=== PATIENT | female | born 1990 | race Two or more races ===

== ENCOUNTER 2016-03-15 10:04 | Emergency (ER) | payer MEDICAID ==
[~2016-03-15] VITALS: Ht 154.9 cm; Wt 104.8 kg
[2016-03-15 10:43] VITALS: BP 112/68
== END 2016-03-15 11:03 | disposition home or self-care (01) ==
LOC: ER 10:04
DX: S39.012A Strain of muscle, fascia and tendon of lower back, initial encounter (principal); Z87.891 Personal history of nicotine dependence; X58.XXXA Exposure to other specified factors, initial encounter; Y93.89 Activity, other specified; Y99.8 Other external cause status; Y92.89 Other specified places as the place of occurrence of the external cause

== ENCOUNTER 2017-07-02 04:53 | Emergency (ER) | payer MEDICAID ==
[~2017-07-02] VITALS: Ht 154.9 cm; Wt 103.9 kg
[2017-07-02 05:17] LABS: Urine WBC None Seen /hpf (0 - 5)
[2017-07-02 05:24] LABS: Urine Bacteria NONE SEEN /hpf (None Seen); Urine Blood Negative /uL (Negative); Urine Specific Gravity 1.005 (1.001-1.035)
[2017-07-02 05:48] LABS: Basophils # (auto) 0.1 uL; Basophils % (auto) 0.9 % (0.0-2.0); Eosinophils # (auto) 0.1 uL; Eosinophils % (auto) 1.6 % (0.0-7.0); Hematocrit 39.6 % (36.0-46.0); Hemoglobin 13.2 g/dL (12.2-16.2); Lymphocytes # (auto) 2.1 uL; Lymphocytes % (auto) 25.4 % (10.0-50.0); Mean Corpuscular Hemoglobin 30.3 pg (28.0-32.0); Mean Corpuscular Hgb Conc. 33.4 g/dL (32.0-36.0); Mean Corpuscular Volume 90.8 fL (80.0-100.0); Monocytes # (auto) 0.6 uL; Monocytes % (auto) 6.8 % (0.0-12.0); Neutrophils # (auto) 5.4 uL; Neutrophils % (auto) 65.3 % (37.0-80.0); Nucleated Red Blood Cells % 0.1 %; Platelet Count (auto) 352 10^3/uL (140-450); Red Blood Cells 4.36 10^6/uL (4.0-5.20); Red Cell Distribution Width 13.5 % (11.8-14.3); White Blood Cell 8.3 10^3/uL (4.4-10.8)
[2017-07-02 06:21] LABS: Albumin 3.6 g/dL (3.4-5.0); BUN/Creatinine Ratio 16.7; Bilirubin, Total 0.2 mg/dL (0.2-1.0); Calcium 8.8 mg/dL (8.5-10.1); Potassium 4.3 mmol/L (3.5-5.1); Total Protein 7.5 g/dL (6.4-8.2)
[2017-07-02 09:18] VITALS: BP 115/52
== END 2017-07-02 09:22 | disposition home or self-care (01) ==
LOC: ER 04:57
DX: E27.8 Other specified disorders of adrenal gland (principal); F17.210 Nicotine dependence, cigarettes, uncomplicated
CPT/HCPCS: 36415; 74176; 80053; 81001; 81025; 85025

== ENCOUNTER 2019-09-23 22:53 | Emergency (ER) | payer MEDICAID ==
[~2019-09-23] VITALS: Ht 154.9 cm; Wt 100.2 kg
[2019-09-24 01:46] VITALS: BP 140/58
== END 2019-09-24 02:40 | disposition home or self-care (01) ==
LOC: ER 22:53
DX: S73.101A Unspecified sprain of right hip, initial encounter (principal); S39.012A Strain of muscle, fascia and tendon of lower back, initial encounter; F17.210 Nicotine dependence, cigarettes, uncomplicated; Z87.442 Personal history of urinary calculi; W18.39XA Other fall on same level, initial encounter; Y93.89 Activity, other specified; Y92.89 Other specified places as the place of occurrence of the external cause; Y99.8 Other external cause status
CPT/HCPCS: 71046; 72131; 73700

== ENCOUNTER 2020-09-29 17:41 | Emergency (ER) | payer MEDICAID ==
[~2020-09-29] VITALS: Ht 154.9 cm; Wt 99.8 kg
[2020-09-29 19:18] VITALS: BP 125/81
== END 2020-09-30 02:53 | disposition left against medical advice (07) ==
LOC: ER 17:41
DX: R10.30 Lower abdominal pain, unspecified (principal); Z53.21 Procedure and treatment not carried out due to patient leaving prior to being seen by health care provider

== ENCOUNTER 2020-10-17 05:09 | Emergency (ER) | payer MEDICAID ==
[~2020-10-17] VITALS: Ht 154.9 cm; Wt 99.8 kg
[2020-10-17 07:40] VITALS: BP 130/71
[2020-10-17] MEDS ORDERED: traMADol HCL 50 MG TAB PO ONE (07:45)
== END 2020-10-17 08:19 | disposition home or self-care (01) ==
LOC: ER 05:09
DX: S33.5XXA Sprain of ligaments of lumbar spine, initial encounter (principal); M79.18 Myalgia, other site; F17.210 Nicotine dependence, cigarettes, uncomplicated; Z87.442 Personal history of urinary calculi; X58.XXXA Exposure to other specified factors, initial encounter; Y93.89 Activity, other specified; Y92.89 Other specified places as the place of occurrence of the external cause; Y99.8 Other external cause status
CPT/HCPCS: 72100

== ENCOUNTER 2021-02-07 22:21 | Emergency (ER) | payer MEDICAID ==
[~2021-02-07] VITALS: Ht 154.9 cm; Wt 104.3 kg
[2021-02-08 01:12] LABS: Basophils # (auto) 0.2 10 ^3/uL (0-0.2); Basophils % (auto) 2.6 % (0.0-2.0); Eosinophils # (auto) 0.2 10 ^3/uL (0-0.8); Eosinophils % (auto) 2.1 % (0.0-7.0); Hematocrit 38.4 % (36.0-46.0); Hemoglobin 13.2 g/dL (12.2-16.2); Lymphocytes # (auto) 2.4 10 ^3/uL (0.4-5.4); Lymphocytes % (auto) 29.1 % (10.0-50.0); Mean Corpuscular Hemoglobin 31.3 pg (28.0-32.0); Mean Corpuscular Hgb Conc. 34.3 g/dL (32.0-36.0); Mean Corpuscular Volume 91.2 fL (80.0-100.0); Monocytes # (auto) 0.3 10 ^3/uL (0-1.3); Monocytes % (auto) 4.1 % (0.0-12.0); Neutrophils # (auto) 5.2 10 ^3/uL (1.6-8.6); Neutrophils % (auto) 62.1 % (37.0-80.0); Nucleated Red Blood Cells % 0.2 %; Red Blood Cells 4.21 10^6/uL (4.0-5.20); Red Cell Distribution Width 12.9 % (11.8-14.3); White Blood Cell 8.3 10^3/uL (4.4-10.8)
[2021-02-08 01:27] LABS: Albumin 3.2 g/dL (3.4-5.0); Calcium 8.6 mg/dL (8.5-10.1); Magnesium 2.7 mg/dL (1.6-2.6); Potassium 4.1 mmol/L (3.5-5.1)
[2021-02-08] MEDS ORDERED: ASPirin 81 mg TAB PO ONE (01:30)
[2021-02-08 01:33] LABS: BUN/Creatinine Ratio 18.5; Bilirubin, Total 0.1 mg/dL (0.2-1.0); Total Protein 7.2 g/dL (6.4-8.2)
[2021-02-08 03:14] LABS: INR 0.96 (0.9-1.15); Partial Thromboplastin Time 28.6 sec (23.6-33.0)
[2021-02-08] MEDS ORDERED: IOHEXOL 350 MG/ML 100ML IJ ONE (05:03)
[2021-02-08 05:30] LABS: Urine Bacteria NONE SEEN /hpf (None Seen); Urine Blood 3+ /uL (Negative); Urine Specific Gravity 1.006 (1.001-1.035); Urine WBC 5 /hpf (0 - 5)
[2021-02-08 07:00] VITALS: BP 124/70
== END 2021-02-08 07:01 | disposition home or self-care (01) ==
LOC: ER 22:24
DX: R07.2 Precordial pain (principal); F41.9 Anxiety disorder, unspecified; F17.210 Nicotine dependence, cigarettes, uncomplicated
CPT/HCPCS: 36415; 71045; 71275; 80053; 81001; 83735; 83880; 84443; 84484; 84702; 85025; 85379; 85610; 85730; 93005; 99285; Q9967

== ENCOUNTER 2022-08-18 12:01 | Emergency (ER) | payer MEDICAID ==
[~2022-08-18] VITALS: Ht 154.9 cm; Wt 108.7 kg
[2022-08-18 12:56] LABS: Urine Bacteria NONE SEEN /hpf (None Seen); Urine Blood Negative /uL (Negative); Urine WBC <1 /hpf (0 - 5)
[2022-08-18 13:01] LABS: Alcohol, Urine < 3.0 mg/dL (0-10); Amphetamine Screen, Urine NEGATIVE (NEGATIVE); Barbiturate Scree,Urine NEGATIVE (NEGATIVE); Benzodiazephine Screen, Urine NEGATIVE (NEGATIVE); Cannabinoid Screen, Urine NEGATIVE (NEGATIVE); Cocaine Screen, Urine NEGATIVE (NEGATIVE); Opiate Scree,Urine NEGATIVE (NEGATIVE); Phencyclidine Screen, Urine NEGATIVE (NEGATIVE)
[2022-08-18 13:05] VITALS: BP 139/85
[2022-08-18 13:06] LABS: Basophils # (auto) 0.1 10 ^3/uL (0-0.2); Eosinophils # (auto) 0.1 10 ^3/uL (0-0.8); Eosinophils % (auto) 1.3 % (0.0-7.0); Hematocrit 42.3 % (36.0-46.0); Hemoglobin 14.3 g/dL (12.2-16.2); Lymphocytes # (auto) 1.5 10 ^3/uL (0.4-5.4); Lymphocytes % (auto) 20.6 % (10.0-50.0); Mean Corpuscular Hemoglobin 31.2 pg (28.0-32.0); Mean Corpuscular Hgb Conc. 33.9 g/dL (32.0-36.0); Monocytes # (auto) 0.3 10 ^3/uL (0-1.3); Monocytes % (auto) 4.4 % (0.0-12.0); Neutrophils # (auto) 5.2 10 ^3/uL (1.6-8.6); Neutrophils % (auto) 72.7 % (37.0-80.0); Red Blood Cells 4.59 10^6/uL (4.0-5.20); Red Cell Distribution Width 13.1 % (11.8-14.3); White Blood Cell 7.1 10^3/uL (4.4-10.8)
[2022-08-18 13:37] LABS: BUN/Creatinine Ratio 18.3 (10.0-20.0); Calcium 8.9 mg/dL (8.5-10.1); Potassium 4.3 mmol/L (3.5-5.1)
[2022-08-18] MEDS ORDERED: AMOX875T3 PO (13:51)
[2022-08-18] MEDS ORDERED: MECL25CH85 PO (13:51)
== END 2022-08-18 13:59 | disposition home or self-care (01) ==
LOC: ER 12:01
DX: H81.12 Benign paroxysmal vertigo, left ear (principal); H66.92 Otitis media, unspecified, left ear; F17.210 Nicotine dependence, cigarettes, uncomplicated; Z32.02 Encounter for pregnancy test, result negative; Z88.1 Allergy status to other antibiotic agents; Z79.899 Other long term (current) drug therapy
CPT/HCPCS: 36415; 80048; 80307; 81001; 81025; 85025

== ENCOUNTER 2022-10-19 22:20 | Emergency (ER) | payer SELFPAY ==
[~2022-10-19] VITALS: Ht 154.9 cm; Wt 111.8 kg
[~2022-10-19 22:20] MED LIST: AMOX875T3 PO; MECL25CH85 PO
[2022-10-19 23:26] VITALS: BP 101/45; PULSE 88; RESP 18; TEMP 98.5; O2SAT 98
[2022-10-19] MEDS ORDERED: TRIA0.02 TOP (23:52)
== END 2022-10-20 00:25 | disposition home or self-care (01) ==
LOC: ER 22:26
DX: L20.9 Atopic dermatitis, unspecified (principal); L74.3 Miliaria, unspecified; F17.210 Nicotine dependence, cigarettes, uncomplicated

== ENCOUNTER 2023-04-10 20:45 | Emergency (ER) | payer MEDICAID ==
[~2023-04-10] VITALS: Ht 154.9 cm; Wt 108.1 kg
[~2023-04-10 20:45] MED LIST changes: +TRIA0.02 TOP
[2023-04-10 21:38] LABS: Basophils # (auto) 0 10 ^3/uL (0-0.2); Basophils % (auto) 0.4 % (0.0-2.0); Eosinophils # (auto) 0.2 10 ^3/uL (0-0.8); Eosinophils % (auto) 1.9 % (0.0-7.0); Hematocrit 41.1 % (36.0-46.0); Hemoglobin 13.9 g/dL (12.2-16.2); Lymphocytes # (auto) 2.8 10 ^3/uL (0.4-5.4); Lymphocytes % (auto) 33.5 % (10.0-50.0); Mean Corpuscular Hemoglobin 30.9 pg (28.0-32.0); Mean Corpuscular Hgb Conc. 33.9 g/dL (32.0-36.0); Mean Corpuscular Volume 91.3 fL (80.0-100.0); Monocytes # (auto) 0.6 10 ^3/uL (0-1.3); Monocytes % (auto) 7.1 % (0.0-12.0); Neutrophils # (auto) 4.8 10 ^3/uL (1.6-8.6); Neutrophils % (auto) 57.1 % (37.0-80.0); Nucleated Red Blood Cells % 0.1 %; Red Cell Distribution Width 12.8 % (11.8-14.3); White Blood Cell 8.4 10^3/uL (4.4-10.8)
[2023-04-10 21:49] LABS: Chloride 108 mmol/L (98-107); Potassium 4.3 mmol/L (3.5-5.1); Sodium 137 mmol/L (136-145)
[2023-04-10 21:50] LABS: Anion Gap 4 (5-15); Calcium 9.1 mg/dL (8.7-10.4); Carbon Dioxide 25 mmol/L (20-30)
[2023-04-10 21:55] LABS: BUN/Creatinine Ratio 10.7 (10.0-20.0); Blood Urea Nitrogen 8 mg/dL (9-23); Glucose 98 mg/dL (74-106); Lipase 58 U/L (12-53)
[2023-04-10 23:48] LABS: Urine Bacteria FEW /hpf (None Seen); Urine Blood TRACE /uL (Negative); Urine Clarity Clear (Clear); Urine Color Colorless (Yellow); Urine Protein, UAD Negative (Negative); Urine Specific Gravity 1.006 (1.001-1.035); Urine Urobilinogen Normal (Negative); Urine WBC <1 /hpf (0 - 5)
[2023-04-11] MEDS ORDERED: NITR-87 PO (00:20)
[2023-04-11 00:43] VITALS: BP 133/92; PULSE 79; RESP 16; TEMP 97.8; O2SAT 98
== END 2023-04-11 00:49 | disposition home or self-care (01) ==
LOC: ER 20:45
DX: N39.0 Urinary tract infection, site not specified (principal); R07.89 Other chest pain; F17.210 Nicotine dependence, cigarettes, uncomplicated
CPT/HCPCS: 36415; 74176; 80048; 81001; 83690; 84484; 85025; 93005

== ENCOUNTER 2023-04-16 16:12 | Emergency (ER) | payer MEDICAID ==
[~2023-04-16] VITALS: Ht 154.9 cm; Wt 110.2 kg
[~2023-04-16 16:12] MED LIST changes: +NITR-87 PO
[2023-04-16 17:18] LABS: Basophils # (auto) 0 10 ^3/uL (0-0.2); Basophils % (auto) 0.6 % (0.0-2.0); Eosinophils # (auto) 0.2 10 ^3/uL (0-0.8); Eosinophils % (auto) 3.5 % (0.0-7.0); Hematocrit 43.7 % (36.0-46.0); Hemoglobin 14.8 g/dL (12.2-16.2); Lymphocytes # (auto) 2.2 10 ^3/uL (0.4-5.4); Lymphocytes % (auto) 33.1 % (10.0-50.0); Mean Corpuscular Hemoglobin 31.1 pg (28.0-32.0); Mean Corpuscular Hgb Conc. 33.8 g/dL (32.0-36.0); Mean Corpuscular Volume 91.8 fL (80.0-100.0); Monocytes # (auto) 0.5 10 ^3/uL (0-1.3); Monocytes % (auto) 7.4 % (0.0-12.0); Neutrophils # (auto) 3.8 10 ^3/uL (1.6-8.6); Neutrophils % (auto) 55.4 % (37.0-80.0); Nucleated Red Blood Cells % 0.1 %; Red Blood Cells 4.76 10^6/uL (4.0-5.20); Red Cell Distribution Width 12.5 % (11.8-14.3); White Blood Cell 6.8 10^3/uL (4.4-10.8)
[2023-04-16 17:21] LABS: Urine Bacteria NONE SEEN /hpf (None Seen); Urine Blood Negative /uL (Negative); Urine Clarity Clear (Clear); Urine Color Colorless (Yellow); Urine Protein, UAD Negative (Negative); Urine Specific Gravity 1.008 (1.001-1.035); Urine Urobilinogen Normal (Negative); Urine WBC 1 /hpf (0 - 5); Urine pH 6.5 (5.0-8.0)
[2023-04-16 17:31] LABS: Alanine Aminotransferase 65 U/L (7-40); Albumin 4.3 g/dL (3.2-4.8); Alkaline Phosphatase 93 U/L (46-116); Anion Gap 7 (5-15); Aspartate Aminotransferase 32 U/L (13-40); BUN/Creatinine Ratio 12.7 (10.0-20.0); Blood Urea Nitrogen 8 mg/dL (9-23); Calcium 9.4 mg/dL (8.7-10.4); Carbon Dioxide 24 mmol/L (20-30); Chloride 107 mmol/L (98-107); Glucose 110 mg/dL (74-106); Potassium 3.9 mmol/L (3.5-5.1); Sodium 138 mmol/L (136-145)
[2023-04-16 17:32] LABS: Bilirubin, Total 0.2 mg/dL (0.2-1.0)
[2023-04-16 20:05] VITALS: BP 112/67; PULSE 73; RESP 16; TEMP 98; O2SAT 100
== END 2023-04-16 21:12 | disposition home or self-care (01) ==
LOC: ER 16:12
DX: R10.30 Lower abdominal pain, unspecified (principal); M54.9 Dorsalgia, unspecified; F17.210 Nicotine dependence, cigarettes, uncomplicated
CPT/HCPCS: 36415; 76856; 80053; 81001; 85025

== ENCOUNTER 2023-09-15 14:00 | Emergency (ER) | payer SELFPAY ==
[~2023-09-15] VITALS: Ht 154.9 cm; Wt 116.2 kg
[2023-09-15 15:29] VITALS: BP 110/67; PULSE 86; RESP 16; TEMP 98.4; O2SAT 96
[2023-09-15] MEDS ORDERED: IBUP-1456 PO (16:13)
[2023-09-15] MEDS ORDERED: PRED20TA2 PO (16:13)
== END 2023-09-15 16:24 | disposition home or self-care (01) ==
LOC: ER 14:00
DX: G56.02 Carpal tunnel syndrome, left upper limb (principal); F17.210 Nicotine dependence, cigarettes, uncomplicated
CPT/HCPCS: 93971

== ENCOUNTER 2023-10-31 14:55 | Emergency (ER) | payer MEDICAID ==
[~2023-10-31] VITALS: Ht 154.9 cm; Wt 116.4 kg
[~2023-10-31 14:55] MED LIST changes: +IBUP-1456 PO; +PRED20TA2 PO
[2023-10-31 16:28] LABS: Urine Bacteria None Seen /hpf (None Seen)
[2023-10-31 16:45] LABS: Urine Blood Negative /uL (Negative); Urine Clarity Clear (Clear); Urine Color Colorless (Yellow); Urine Protein, UAD Negative (Negative); Urine Specific Gravity 1.006 (1.001-1.035); Urine Urobilinogen Normal (Negative); Urine WBC 1 /hpf (0 - 5); Urine pH 6.5 (5.0-9.0)
[2023-10-31 16:49] LABS: Basophils # (auto) 0 10 ^3/uL (0-0.2); Basophils % (auto) 0.4 % (0.0-2.0); Eosinophils # (auto) 0.2 10 ^3/uL (0-0.8); Eosinophils % (auto) 2.2 % (0.0-7.0); Hematocrit 43.5 % (36.0-46.0); Hemoglobin 14.4 g/dL (12.2-16.2); Lymphocytes # (auto) 2.2 10 ^3/uL (0.4-5.4); Lymphocytes % (auto) 25.6 % (10.0-50.0); Mean Corpuscular Hemoglobin 30.9 pg (28.0-32.0); Mean Corpuscular Volume 93.6 fL (80.0-100.0); Monocytes # (auto) 0.5 10 ^3/uL (0-1.3); Monocytes % (auto) 5.5 % (0.0-12.0); Neutrophils # (auto) 5.7 10 ^3/uL (1.6-8.6); Neutrophils % (auto) 66.3 % (37.0-80.0); Nucleated Red Blood Cells % 0.2 %; Platelet Count (auto) 316 10^3/uL (140-450); Red Blood Cells 4.65 10^6/uL (4.0-5.20); Red Cell Distribution Width 12.9 % (11.8-14.3); White Blood Cell 8.6 10^3/uL (4.4-10.8)
[2023-10-31 17:01] LABS: Chloride 108 mmol/L (98-107); Sodium 137 mmol/L (136-145)
[2023-10-31 17:02] LABS: Anion Gap 4 (5-15); Calcium 9.7 mg/dL (8.7-10.4); Carbon Dioxide 25 mmol/L (20-30)
[2023-10-31 17:07] LABS: BUN/Creatinine Ratio 10.1 (10.0-20.0); Blood Urea Nitrogen 7 mg/dL (9-23); Glucose 103 mg/dL (74-106)
[2023-10-31] MEDS ORDERED: CYCL-837 PO (18:24)
[2023-10-31 18:38] VITALS: BP 117/67; PULSE 93; RESP 16; TEMP 97.1; O2SAT 97
== END 2023-10-31 18:40 | disposition home or self-care (01) ==
LOC: ER 14:55
DX: S39.012A Strain of muscle, fascia and tendon of lower back, initial encounter (principal); R10.9 Unspecified abdominal pain; F17.210 Nicotine dependence, cigarettes, uncomplicated; Z79.899 Other long term (current) drug therapy; X58.XXXA Exposure to other specified factors, initial encounter; Y93.89 Activity, other specified; Y92.89 Other specified places as the place of occurrence of the external cause; Y99.8 Other external cause status
CPT/HCPCS: 36415; 74176; 80048; 81001; 85025

== ENCOUNTER 2023-12-15 15:00 | Emergency (ER) | payer SELFPAY ==
[~2023-12-15] VITALS: Ht 154.9 cm; Wt 115.2 kg
[~2023-12-15 15:00] MED LIST changes: +CYCL-837 PO
[2023-12-15 15:05] VITALS: BP 139/54; RESP 18; O2SAT 96
[2023-12-15 15:12] VITALS: PULSE 86
[2023-12-15 15:51] LABS: Basophils # (auto) 0 10 ^3/uL (0-0.2); Basophils % (auto) 0.5 % (0.0-2.0); Eosinophils # (auto) 0.2 10 ^3/uL (0-0.8); Hematocrit 41.1 % (36.0-46.0); Hemoglobin 14.2 g/dL (12.2-16.2); Lymphocytes # (auto) 2.3 10 ^3/uL (0.4-5.4); Mean Corpuscular Hemoglobin 32.3 pg (28.0-32.0); Mean Corpuscular Hgb Conc. 34.5 g/dL (32.0-36.0); Mean Corpuscular Volume 93.6 fL (80.0-100.0); Monocytes # (auto) 0.6 10 ^3/uL (0-1.3); Monocytes % (auto) 7.5 % (0.0-12.0); Platelet Count (auto) 322 10^3/uL (140-450); Red Blood Cells 4.39 10^6/uL (4.0-5.20); Red Cell Distribution Width 12.8 % (11.8-14.3); White Blood Cell 8.2 10^3/uL (4.4-10.8)
[2023-12-15 16:07] LABS: Alanine Aminotransferase 202 U/L (7-40); Albumin 4.4 g/dL (3.2-4.8); Alkaline Phosphatase 115 U/L (46-116); Anion Gap 6 (5-15); Aspartate Aminotransferase 131 U/L (13-40); BUN/Creatinine Ratio 13.8 (10.0-20.0); Bilirubin, Total 0.3 mg/dL (0.2-1.0); Blood Urea Nitrogen 9 mg/dL (9-23); Calcium 9.8 mg/dL (8.7-10.4); Carbon Dioxide 26 mmol/L (20-31); Chloride 106 mmol/L (98-107); Glucose 84 mg/dL (74-106); Lipase 59 U/L (12-53); Potassium 4.1 mmol/L (3.5-5.1); Sodium 138 mmol/L (136-145); Total Protein 6.8 g/dL (5.7-8.2)
[2023-12-15] MEDS ORDERED: NAP500T GT (16:33)
[2023-12-15] MEDS ORDERED: PANT40TA2 PO (17:42)
== END 2023-12-15 18:38 | disposition home or self-care (01) ==
LOC: ER 15:00
DX: R10.9 Unspecified abdominal pain (principal); Z79.899 Other long term (current) drug therapy
CPT/HCPCS: 36415; 74176; 76705; 80053; 83690; 84484; 85025; 93005

== ENCOUNTER 2024-04-09 21:52 | Emergency (ER) | payer SELFPAY ==
[~2024-04-09] VITALS: Ht 154.9 cm; Wt 120.5 kg
[~2024-04-09 21:52] MED LIST changes: +NAP500T GT; +PANT40TA2 PO
--- NOTE | 2024-04-09 22:21 | ED.PDOC ---
CHEF HPI Comments HPI: 33-year-old female presents with a chief complaint of pelvic pain x 3 days with associated abnormal vaginal spotting. Patient states that her pain is localized to her left pelvic region, nonradiating, intermittent in timing, and states that "it feels like one of my cysts popped". Patient reports that she has a history of ovarian cysts. Patient mentions that she is having minimal vaginal spotting, and is not on her menstrual cycle, patient reports irregular cycles. Patient mentions that she has no history of STDs. Patient has been using Advil without relief. No alleviating or precipitating factors. Denies any history of STD. Denies any . PMHx: Ovarian Cysts, [place] Palsy, eczema PSHx: None Allergies: No Known Allergies Initial Vital Signs: BP: HR: Temp: SpO2: RR: HPI: Poor Historian. REVIEW OF SYSTEMS: CONSTITUTIONAL: Denies acute: fever, diaphoresis, chills, generalized weakness. HEAD: Denies acute: headache, photophobia Eyes: Denies acute: Double vision, vision loss, eye pain, eye discharge. EARS: Denies acute: tinnitus, hearing loss, ear discharge, ear pain, THROAT: Denies acute: sore throat, swelling, difficulty swallowing , pain with swallowing, change in voice. NECK: Denies acute: neck pain, neck swelling, stiff neck. HEART: Denies acute : chest pain, palpitations, LUNGS: Denies acute: SOB, wheezing, cough, hemoptysis ABDOMEN: Denies acute: Nausea, Vomiting, diarrhea, melena , hematemesis, hematochezia SKIN: Denies acute: rash, redness, lesions, itchiness. EXTREMITIES: Denies acute: calf pain, numbness, tingling, weakness, denies pain in extremity. Denies acute: Low back pain. Neuro: Denies acute: focal neurological deficit, motor or sensory focal neurological deficit, tremors, seizure like activity, confusion, dizziness, change in mental status, loss of bowel or bladder function, cauda equina like symptoms. : Denies acute: dysuria, hematuria, flank pain, increase in urinary frequency. PSYCH: Denies acute: hallucination, suicidal ideation, homicidal ideation. FEMALE: Denies acute: foul odor, unusual discharge. PHYSICAL EXAM: General: no acute distress, awake and alert. Head: normocephalic, atraumatic. Neck: supple, trachea is midline, no swelling. Throat: Normal phonation. Eyes:, no erythema, no purulent discharge, no proptosis, no icterus. Heart: regular rate, regular rhythm, no significant murmur appreciated. Lungs: no apparent respiratory distress, Able to speak in full sentences. No wheezing, no rhonchi, no crackles. No stridors Clear to auscultation bilaterally. Abdomen: Left lower quadrant tender to palpation, non distended, soft, no guarding, no rebound, + bowel sounds. Neuro: Awake, Alert, oriented to name, self, situation, follows commands GCS=15. Speech is normal. Skin: no petechia, no purpura, no cyanosis, non-pale, not jaundice. Lower extremities: --no - Pitting edema no deformity, no focal swelling, no calf TTP. Makes eye contact. moves all four extremities. Face: no apparent facial droop. No CVA tenderness to percussion bilaterally. Ambulating in the ED independently. Time Seen by MD: 22:13 Reviewed Notes: Allergies Allergies: Coded Allergies: NO KNOWN ALLERGIES (Unverified , 01/15/11) Home Meds Active Scripts Pantoprazole Sodium Sesquihydr (Protonix) 40 Mg Tab, 40 MG PO DAILY for 30 Days, #30 TAB Prov:LANDRY HERNANDEZ MD 12/15/23 Naproxen (NAPROSYN TABLET) 500 Mg Tb, 500 MG GT BID for 10 Days, #20 TAB Prov:LANDRY HERNANDEZ MD 12/15/23 Naproxen (NAPROSYN TABLET) 500 Mg Tb, 500 MG GT BID for 10 Days, #20 TAB Prov:LANDRY HERNANDEZ MD 12/15/23 Cyclobenzaprine Hcl (Cyclobenzaprine Hcl) 5 Mg Tab, 1 TAB PO TID, #30 TAB Prov:YESICA RIVAS 10/31/23 Prednisone (Prednisone) 20 Mg Tab, 60 MG PO DAILY, #21 TAB Prov:DILIP REARDON 09/15/23 Ibuprofen (Ibuprofen) 800 Mg Tab, 1 TAB PO TID, #30 TAB Prov:DILIP REARDON 24 Nitrofurantoin Monohydrate Mac (Macrobid) 100 Mg Cap, 100 MG PO BID for 7 Days, #14 CAP Prov:YESICA RIVAS [employer]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 04/11/23 Triamcinolone Acetonide (Triamcinolone Acetonide) 0.025 % Cre, 1 APPLIC TOP BID PRN, #30 GRAMS 0 Refills Prov:BRAD BAKER Veronica SALVADOR 10/19/22 Meclizine HCl (Antivert) 25 Mg Chw, 25 MG PO TID, #30 TAB.CHEW Prov:DILIP REARDON 08/18/22 Amoxicillin Trihydrate (Amoxicillin) 875 Mg Tab, 1 TAB PO BID, #20 TAB Prov:DILIP REARDON 08/18/22 Information Source: Patient Past Medical History Past Medical History (Other): BELLS PALSY Surgical History: Denies all surgeries 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 Was a procedure done?: No Differential Diagnosis (BAR ROLLER) Vaginal Bleeding: Other (DDX include Diverticulitis, colitis, gastroenteritis, acute abdomen, SBO, enteritis, constipation, volvulus, appendicitis, Gallbladder disease, choledocolithiasis, ascending cholangitis, pancreatitis, intraAbdominal mass/neoplasm, hepatitis, UTI, pylonephritis, kidney stone, aneurysm, dissection, Inflammatory bowel disease, gastroparesis, ischemic bowel, ovarian torsion, ovarian cyst/mass, tubo-ovarian abscess, , ectopic , PID, STD.), N/A Mass / Lesion: Other (Ovarian torsion) X-Ray, Labs, Meds, VS Vital Signs Date Time Temp Pulse Resp B/P (MAP) Pulse Ox O2 Delivery O2 Flow Rate FiO2 04/09/24 22:10 98.2 108 18 122/88 (99) 94 Lab Test 04/09/24 22:25 04/09/24 22:19 Range/Units White Blood Count 8.1 4.4-10.8 10^3/uL Red Blood Count 4.91 4.0-5.20 10^6/uL Hemoglobin 15.7 12.2-16.2 g/dL Hematocrit 46.0 36.0-46.0 % Mean Corpuscular Volume 93.6 80.0-100.0 fL Mean Corpuscular Hemoglobin 31.9 28.0-32.0 pg Mean Corpuscular Hemoglobin Concent 34.0 32.0-36.0 g/dL Red Cell Distribution Width 12.8 11.8-14.3 % Platelet Count 322 140-450 10^3/uL Mean Platelet Volume 6.7 L 6.9-10.8 fL Neutrophils (%) (Auto) 67.7 37.0-80.0 % Lymphocytes (%) (Auto) 23.7 10.0-50.0 % Monocytes (%) (Auto) 5.6 0.0-12.0 % Eosinophils (%) (Auto) 2.4 0.0-7.0 % Basophils (%) (Auto) 0.6 0.0-2.0 % Neutrophils # (Auto) 5.5 1.6-8.6 10 ^3/uL Lymphocytes # (Auto) 1.9 0.4-5.4 10 ^3/uL Monocytes # (Auto) 0.5 0-1.3 10 ^3/uL Eosinophils # (Auto) 0.2 0-0.8 10 ^3/uL Basophils # (Auto) 0 0-0.2 10 ^3/uL Nucleated Red Blood Cells 0.1 % Sodium Level 137 136-145 mmol/L Potassium Level 4.4 3.5-5.1 mmol/L Chloride Level 107 98-107 mmol/L Carbon Dioxide Level 24 20-31 mmol/L Anion Gap 6 5-15 Blood Urea Nitrogen 8 L 9-23 mg/dL Creatinine 0.60 0.550-1.02 mg/dL Glomerular Filtration Rate Calc 121 >90 mL/min BUN/Creatinine Ratio 13.3 10.0-20.0 Serum Glucose 109 H 74-106 mg/dL Lactic Acid Level 1.5 0.4-2.0 mmol/L Calcium Level 10.1 8.7-10.4 mg/dL Total Bilirubin 0.3 0.2-1.0 mg/dL Aspartate Amino Transferase (AST) 58 H 13-40 U/L Alanine Aminotransferase (ALT) 125 H 7-40 U/L Alkaline Phosphatase 104 46-116 U/L Total Protein 6.8 5.7-8.2 g/dL Albumin 4.1 3.2-4.8 g/dL Lipase 57 H 12-53 U/L Urine Color Colorless Yellow Urine Clarity Clear Clear Urine pH 7.0 5.0-9.0 Urine Specific [place] 1.004 1.001-1.035 Urine Protein Negative Negative Urine Ketones Negative Negative Urine Blood Negative Negative /uL Urine Nitrite Negative Negative Urine Bilirubin Negative Negative Urine Urobilinogen Normal Negative mg/dL Urine Leukocyte Esterase Negative Negative /uL Urine RBC <1 0 - 4 /hpf Urine Microscopic WBC < 1 0-5 /HPF Urine Squamous Epithelial Cells None seen <5 /hpf Urine Bacteria None seen None Seen /hpf Urine Glucose Normal Normal mg/dL Urine Test Negative Negative [facility] [address] [facility] [address] Ph: [phone] DIAGNOSTIC IMAGING Diagnostic Imaging Report : [id number] Signed PATIENT: BUBBA SANTOS ACCT: [id number] UNIT: [id number] : 1990 LOC: ER ROOM / BED: / AGE / SEX: 33 / F ADM STATUS: REG ER SERVICE 15 ORDERING PHYSICIAN: DANIEL CHEEMA DO PROCEDURE(s): PELUS - PELVIC REASON: LLQ pain ORDER NUMBER(s): [id number], ACCESSION NUMBER(s): [id number] TRANSABDOMINAL PELVIC ULTRASOUND CLINICAL HISTORY: LLQ pain TECHNIQUE: Multiple grayscale ultrasound images were obtained of the pelvis via transabdominal approach. Limited color Doppler and spectral Doppler acquisitions were also obtained. COMPARISON: US PELVIC on DOS: 04/16/23 FINDINGS: Uterus: 6.9 x 5.6 x 3.3 cm. The uterine contour is smooth. No myometrial masses are seen. Endometrium: 1.1 cm. No endometrial mass is seen. Right adnexa: right ovary 7.0 x 4.8 x 5.4 cm. Normal arterial blood flow in the ovary. No right adnexal mass seen. Multiple cystic lesions in the right ovary / adnexa largest measuring up to 4.4 cm. Left adnexa: left ovary is not visualized. No left adnexal mass seen. Other: None IMPRESSION: 1. Multiple cystic structures in the right ovary which could reflect follicular cysts. Consider short-term follow-up ultrasound if clinically indicated. 2. Left ovary not visualized. 3. Normal uterus and endometrium. ATED BY: CLARISA LI MD DICTATED DATE/TIME: 04/09/242338 SIGNED BY: CLARISA LI MD SIGNED DATE/TIME: 04/09/242338 CC: Time of 1ST Reevaluation: 22:43 Reevaluation 1ST: Unchanged Patient Education/Counseling: Diagnosis, Treatment, Prognosis Family Education/Counseling: Diagnosis, Treatment, Prognosis Comments Patient presented with the above HPI.---left lower quadrant pain---workup was initiated. patient was found with the above mentioned diagnosis. the following medications were ordered: please refer to order lists of meds and tests obtained by myself Dr. Cheema. Patient ED course and VS have been stabilized. Patient has been reassessed in the ED and remained in a stable condition. Pertinent incidental findings were discussed with the patient and/or family. Patient/family voices understanding and is agreeable with plan. Patient has been observed in the ED adequate length of time to insure improv ement/stability. Escalation of care considered: Consideration of escalation to observation or admission Patient was DISCHARGED home in a stable condition. All the reports of any imaging studies that were ordered by myself were reviewed by myself. Departure 1 Departure Time of Disposition: 01:48 Impression: Primary Impression: LLQ abdominal pain Additional Impression: Elevated LFTs Disposition: HOME / SELF CARE / HOMELESS Condition: Stable Additional Instructions: Additional discharge instructions: You MUST follow-up with your primary care/family doctor in 1 to 2 days. If you are unable to see your primary care/family doctor, please return to our emergency room for re-assessment and re-evaluation in 1 to 2 days. Return to the emergency room here in our facility or to the nearest ER [facility] if your symptoms change or worsen. CONSULTATIONS: you MUST Follow-up for consultation as soon as possible with: Dr. ESTEBAN Bell doctor in 1-2 days. Please call for appointment. You MUST call the consultants office yourself to make an appointment. You may need to arrange that through your insurance and/or your primary/family doctor. If you are unable to see the sap payroll consultant in 1 to 2 days, you must return to our emergency room (or any other ER of your choice) for re-assessment and re- evaluation. Adequate fluid hydration. Below is a copy of your radiological report for follow up: [address] [address] Ph: [phone] DIAGNOSTIC IMAGING Diagnostic Imaging Report : [id number] Signed PATIENT: BUBBA SANTOS ACCT: [id number] UNIT: [id number] : 1990 LOC: ER ROOM / BED: / AGE / SEX: 33 / F ADM STATUS: REG ER SERVICE 15 ORDERING PHYSICIAN: DANIEL CHEEMA DO PROCEDURE(s): PELUS - PELVIC REASON: LLQ pain ORDER NUMBER(s): [id number], ACCESSION NUMBER(s): [id number] TRANSABDOMINAL PELVIC ULTRASOUND CLINICAL HISTORY: LLQ pain TECHNIQUE: Multiple grayscale ultrasound images were obtained of the pelvis via transabdominal approach. Limited color Doppler and spectral Doppler acquisitions were also obtained. COMPARISON: US PELVIC on DOS: 04/16/23 FINDINGS: Uterus: 6.9 x 5.6 x 3.3 cm. The uterine contour is smooth. No myometrial masses are seen. Endometrium: 1.1 cm. No endometrial mass is seen. Right adnexa: right ovary 7.0 x 4.8 x 5.4 cm. Normal arterial blood flow in the ovary. No right adnexal mass seen. Multiple cystic lesions in the right ovary / adnexa largest measuring up to 4.4 cm. Left adnexa: left ovary is not visualized. No left adnexal mass seen. Other: None IMPRESSION: 1. Multiple cystic structures in the right ovary which could reflect follicular cysts. Consider short-term follow-up ultrasound if clinically indicated. 2. Left ovary not visualized. 3. Normal uterus and endometrium. ATED BY: CLARISA LI MD DICTATED DATE/TIME: 04/09/242338 SIGNED BY: CLARISA LI MD SIGNED DATE/TIME: 04/09/242338 CC: [address] [address] Ph: [phone] DIAGNOSTIC IMAGING Diagnostic Imaging Report : [id number] Signed PATIENT: BUBBA SANTOS ACCT: [id number] UNIT: [id number] : 1990 LOC: ER ROOM / BED: / AGE / SEX: 33 / F ADM STATUS: REG ER SERVICE 2347 ORDERING PHYSICIAN: DANIEL CHEEMA DO PROCEDURE(s): ABPL - CT AB PEL WO CON-NO ORAL OR IV REASON: LLQ pain ORDER NUMBER(s): [id number], ACCESSION NUMBER(s): [id number] Exam: CT CT AB PEL WO CON-NO ORAL OR IV History: LLQ pain Comparison Study: CT CT AB PEL WO CON-NO ORAL OR IV on DOS: 12/15/23, CT CT AB PEL WO CON-NO ORAL OR IV on DOS: 10/31/23, CT CT AB PEL WO CON-NO ORAL OR IV on DOS: 04/10/23 Technique: Multidetector spiral CT of the abdomen was performed from lung bases to pubic symphysis. Imaging was performed without IV contrast. Axial, coronal and sagittal multiplanar reformats were obtained from the axial data set by the technologist. Radiation Dose : 1. Abdomen/Pelvis: CTDIvol 26 mGy, DLP 1645 mGy*cm. Findings: Evaluation of solid organs is limited due to lack of intravenous contrast use. Lung Bases: No acute or significant lung base finding. Normal heart size. No pleural or pericardial effusion. Liver: The liver is normal in size. No focal lesions. Gallbladder and Biliary Tree: Unremarkable Spleen: Unremarkable Pancreas: The pancreas is grossly normal in appearance. Adrenal Glands: Unremarkable Kidneys: Kidneys are grossly normal without calculi or hydronephrosis. Bladder: Grossly unremarkable for degree of distention. Bowel: The stomach is grossly normal in appearance. Small bowel and colon are normal in caliber and distribution. The appendix is not visualized; however, no secondary findings of acute appendicitis identified. Ascites: Absent Lymphadenopathy: No mesenteric, retroperitoneal or periportal lymphadenopathy. Abdominal Wall and Mesentery: Unremarkable. Vasculature: The visualized abdominal aorta is normal in size and caliber. Evaluation of abdominal and pelvic vessels is limited due to lack of intravenous contrast. Pelvic Organs: Unremarkable Musculoskeletal: No aggressive focal bony lesions, acute fractures or dislocation. IMPRESSION: 1. No acute abdominal or pelvic findings. Radiation optimization: All CT scans at this facility use at least one of these dose optimization techniques: automated exposure control mA and/or kV adjustment per patient size (includes targeted exams where dose is matched to clinical indication) or iterative reconstruction. ATED BY: FLAVIO LAGUNAS MD DICTATED DATE/TIME: 04/10/24125 SIGNED BY: FLAVIO LAGUNAS MD SIGNED DATE/TIME: 04/10/24125 CC: Discharged With: Self Critical Care Note Critical Care Time?: No I personally scribed for DANIEL CHEEMA DO ([email or web address]) on 04/09/24 at 22:21. Electronically submitted by Ludwig Tapia ([email or web address]). DANIEL CHEEMA DO Apr 09, 2024 22:21
[2024-04-09 22:34] LABS: Urine Bacteria None Seen /hpf (None Seen)
[2024-04-09 22:40] LABS: Basophils # (auto) 0 10 ^3/uL (0-0.2); Basophils % (auto) 0.6 % (0.0-2.0); Eosinophils # (auto) 0.2 10 ^3/uL (0-0.8); Eosinophils % (auto) 2.4 % (0.0-7.0); Hemoglobin 15.7 g/dL (12.2-16.2); Lymphocytes # (auto) 1.9 10 ^3/uL (0.4-5.4); Lymphocytes % (auto) 23.7 % (10.0-50.0); Mean Corpuscular Hemoglobin 31.9 pg (28.0-32.0); Mean Corpuscular Volume 93.6 fL (80.0-100.0); Monocytes # (auto) 0.5 10 ^3/uL (0-1.3); Monocytes % (auto) 5.6 % (0.0-12.0); Neutrophils # (auto) 5.5 10 ^3/uL (1.6-8.6); Neutrophils % (auto) 67.7 % (37.0-80.0); Nucleated Red Blood Cells % 0.1 %; Platelet Count (auto) 322 10^3/uL (140-450); Red Blood Cells 4.91 10^6/uL (4.0-5.20); Red Cell Distribution Width 12.8 % (11.8-14.3); White Blood Cell 8.1 10^3/uL (4.4-10.8)
[2024-04-09 22:52] LABS: Urine Blood Negative /uL (Negative); Urine Clarity Clear (Clear); Urine Color Colorless (Yellow); Urine Protein, UAD Negative (Negative); Urine Specific Gravity 1.004 (1.001-1.035); Urine Squamous Epithelial Cell None Seen /hpf (<5); Urine Urobilinogen Normal (Negative); Urine WBC < 1 /HPF (0-5)
[2024-04-09 22:57] LABS: Albumin 4.1 g/dL (3.2-4.8); Alkaline Phosphatase 104 U/L (46-116); Anion Gap 6 (5-15); BUN/Creatinine Ratio 13.3 (10.0-20.0); Bilirubin, Total 0.3 mg/dL (0.2-1.0); Calcium 10.1 mg/dL (8.7-10.4); Carbon Dioxide 24 mmol/L (20-31); Chloride 107 mmol/L (98-107); Potassium 4.4 mmol/L (3.5-5.1); Sodium 137 mmol/L (136-145); Total Protein 6.8 g/dL (5.7-8.2)
[2024-04-09 23:03] LABS: Alanine Aminotransferase 125 U/L (7-40); Aspartate Aminotransferase 58 U/L (13-40); Blood Urea Nitrogen 8 mg/dL (9-23); Glucose 109 mg/dL (74-106); Lipase 57 U/L (12-53)
--- NOTE | 2024-04-09 23:42 | DVH ---
TRANSABDOMINAL PELVIC ULTRASOUND CLINICAL HISTORY: LLQ pain TECHNIQUE: Multiple grayscale ultrasound images were obtained of the pelvis via transabdominal appro ach. Limited color Doppler and spectral Doppler acquisitions were also obtained. COMPARISON: US PELVIC on DOS: 04/16/23 FINDINGS: Uterus: 6.9 x 5.6 x 3.3 cm. The uterine contour is smooth. No myometrial masses are seen. Endometrium: 1.1 cm. No endometrial mass is seen. Right adnexa: right ovary 7.0 x 4.8 x 5.4 cm. Normal arterial blood flow in the ovary. No right adnex al mass seen. Multiple cystic lesions in the right ovary / adnexa largest measuring up to 4.4 cm. Left adnexa: left ovary is not visualized. No left adnexal mass seen. Other: None IMPRESSION: 1. Multiple cystic structures in the right ovary which could reflect follicular cysts. Consider short -term follow-up ultrasound if clinically indicated. 2. Left ovary not visualized. 3. Normal uterus and endometrium.
--- NOTE | 2024-04-10 01:28 | DVH ---
Exam: CT CT AB PEL WO CON-NO ORAL OR IV History: LLQ pain Comparison Study: CT CT AB PEL WO CON-NO ORAL OR IV on DOS: 12/15/23, CT CT AB PEL WO CON-NO ORAL OR IV on DOS: 10/31/23, CT CT AB PEL WO CON-NO ORAL OR IV on DOS: 04/10/23 Technique: Multidetector spiral CT of the abdomen was performed from lung bases to pubic symphysis. Imaging was performed without IV contrast. Axial, coronal and sagittal multiplanar reformats were ob tained from the axial data set by the technologist. Radiation Dose : 1. Abdomen/Pelvis: CTDIvol 26 mGy, DLP 1645 mGy*cm. Findings: Evaluation of solid organs is limited due to lack of intravenous contrast use. Lung Bases: No acute or significant lung base finding. Normal heart size. No pleural or pericardial effusion. Liver: The liver is normal in size. No focal lesions. Gallbladder and Biliary Tree: Unremarkable Spleen: Unremarkable Pancreas: The pancreas is grossly normal in appearance. Adrenal Glands: Unremarkable Kidneys: Kidneys are grossly normal without calculi or hydronephrosis. Bladder: Grossly unremarkable for degree of distention. Bowel: The stomach is grossly normal in appearance. Small bowel and colon are normal in caliber and d istribution. The appendix is not visualized; however, no secondary findings of acute appendicitis id entified. Ascites: Absent Lymphadenopathy: No mesenteric, retroperitoneal or periportal lymphadenopathy. Abdominal Wall and Mesentery: Unremarkable. Vasculature: The visualized abdominal aorta is normal in size and caliber. Evaluation of abdominal a nd pelvic vessels is limited due to lack of intravenous contrast. Pelvic Organs: Unremarkable Musculoskeletal: No aggressive focal bony lesions, acute fractures or dislocation. IMPRESSION: 1. No acute abdominal or pelvic findings. Radiation optimization: All CT scans at this facility use at least one of these dose optimization naya hniques: automated exposure control mA and/or kV adjustment per patient size (includes targeted exam s where dose is matched to clinical indication) or iterative reconstruction.
[2024-04-10 03:32] VITALS: BP 111/71; PULSE 78; RESP 18; O2SAT 96
[2024-04-10] MEDS: HYDROcodone-ACET 5/325MG TAB PO ONE (03:43)
[2024-04-10] MEDS: KETOROLAC TROMETH 60MG/2ML VIAL IM ONE (03:43)
== END 2024-04-10 03:44 | disposition home or self-care (01) ==
LOC: ER 21:52
DX: R10.32 Left lower quadrant pain (principal); N93.9 Abnormal uterine and vaginal bleeding, unspecified; R79.89 Other specified abnormal findings of blood chemistry; Z79.899 Other long term (current) drug therapy; Z98.890 Other specified postprocedural states
CPT/HCPCS: 36415; 74176; 76856; 80053; 81001; 81025; 83605; 83690; 85025